=== PATIENT | female | born 2000 | race Caucasian/White ===

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

== ENCOUNTER 2018-01-17 19:05 | Emergency (ER) | END 2018-01-18 00:24 | disposition home or self-care (01) ==

== ENCOUNTER 2018-01-25 06:03 | Inpatient (IN) | END 2018-01-27 18:38 | disposition home or self-care (01) | DRG 743 ==